=== PATIENT | female | born 1945 | race Caucasian/White ===

== ENCOUNTER 2023-08-18 08:20 | Outpatient (REF) | payer MEDICARE, BC, SELFPAY ==
--- NOTE | ~2023-08-18 | XR_ITS ---
EXAMINATION: XR LUMBOSACRAL SPINE BENDING FILMS ONLY CLINICAL INFORMATION: Pain COMPARISON: None available. TECHNIQUE: Neutral flexion and extension views of the lumbar spine FINDINGS: Grade 1 anterolisthesis of L4 on L5 without subluxation between flexion and extension views. Retrolisthesis of L2 on L3 and L3 on L4 without evidence of subluxation between flexion and extension views. Multilevel degenerative changes with disc space narrowing and osteophytosis. XR/XR lumbar spine bending only IMPRESSION: Grade 1 anterolisthesis of L4 on L5 and retrolisthesis of L2 on L3 and L3 on L4 without subluxation between flexion and extension views.
== END 2023-08-18 08:21 | disposition home or self-care (01) ==
LOC: HO.HOSX 08:20
PROVIDERS: Visit Provider Internal Medicine
DX: Z13.89 Encounter for screening for other disorder (principal)
CPT/HCPCS: 72120

== ENCOUNTER 2023-08-18 10:44 | Outpatient (AMB) | payer MEDICARE, BC, SELFPAY ==
--- NOTE | ~2023-08-18 | XR_ITS ---
EXAMINATION: XR LUMBOSACRAL SPINE CLINICAL INFORMATION: Spinal stenosis. COMPARISON: None available. TECHNIQUE: AP and lateral views of the lumbar spine were obtained. Lateral views were obtained in flexion, extension, and neutral positions. FINDINGS: There is bony demineralization. There is marked degenerative disc disease extending from L1-L2 through L5-S1. At L2-L3, there is a 5 mm anterolisthesis. At L3-L4, there is a 6 mm anterolisthesis. At L4-L5, there is an 8 mm anterolisthesis. No acute fracture or spondylolisthesis is seen. There is no significant instability with flexion or extension. The posterior elements are intact. There is multi-level lumbar facet arthropathy. There are aortoiliac atherosclerotic calcifications. There are pelvic surgical clips. A hip arthroplasty is noted. XR/XR lumbar spine bending only IMPRESSION: There is multi-level marked degenerative disc disease, spondylosis and facet arthropathy, extending from L1-L2 through L5-S1. No acute fracture or spondylolisthesis is seen. There is no instability with flexion or extension.
--- NOTE | 2023-08-18 10:48 | MHC.OFFVIS ---
Intake Vital Signs 08/18/23 10:50 Height 5 ft 5 in Weight 172 lb BMI 28.6 Respiration 12 Intake Visit Reasons: Lumbar DDD Allergies Sulfa (Sulfonamide Antibiotics) Allergy (Severe, Verified 08/18/23 10:51) serum sickness esomeprazole [From Nexium] Adverse Reaction (Severe, Verified 08/18/23 10:51) Hives citalopram Adverse Reaction (Intermediate, Verified 08/18/23 10:51) Rash Medication List - Last Reconciled 08/18/23 by Melony De La Cruz LPN acetaminophen 1,000 mg PO Q6H PRN amlodipine 10 mg PO DAILY aspirin (Adult Aspirin Regimen) 81 mg PO DAILY bimatoprost 0.01% (Lumigan) 1 drp ophthalmic (eye) DAILY chlorpheniramine maleate 4 mg PO Q8H PRN diclofenac sodium 1% 2 grams topical QID famotidine 40 mg PO DAILY fluticasone propionate 50 mcg/actuation 1 spray intranasal DAILY gabapentin 300 mg PO TID hydrochlorothiazide 25 mg PO DAILY ibuprofen 200 mg PO Q6H PRN lorazepam 1 mg PO DAILY losartan 100 mg PO DAILY potassium chloride ER 10 mEq PO DAILY tramadol 50 mg PO Q6H PRN HPI Lumbar DDD HPI Details 77-year-old female who presents today to the office for an evaluation of lumbar DDD. The patient reports low back pain with associated left leg radiculopathy. She reports low back pain, which radiates through the groin and down the anterior aspect of the left thigh. The pain is rated at 7/10 in intensity on average. Her left leg is worse than the right side. She states that her back pain is bothersome. She denies any right-leg radiculopathy. She reports buckling in her left leg. She has some discomfort sleeping on the left side at night. She states that her pain worsens when getting out of bed, recliner, or couch. She is using a walker for ambulation. She is taking gabapentin 300 mg TID and alternates between Tylenol and ibuprofen for pain management. She had a left total hip arthroplasty performed about 15-20 years ago in [place] and a right total knee arthroplasty performed by Dr. Blanco in May 2023. She had a DEXA scan several years ago, was WNL. She usually sleeps only about 3 hours at night and keeps switching from bed to couch to reclining chairs. She is not taking any blood thinners. 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 She states that her work required a lot of lifting and bending. She is physically active and does gardening at home. She lifts 40-pound bags of dirt, shovels, and works in the yard. 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 [facility] Medical History (Updated 08/18/23 @ 11:23 by Aadlid Brooks MD) Low back pain Review of Systems Const All systems reviewed & are unremarkable except as noted in HPI and below Physical Exam Vital Signs: Last Vital Signs Resp 12 08/18/23 10:50 BMI result Body Mass Index 28.6 General: Appears afebrile. Alert and oriented. Mood and affect appropriate. Follows and participates in conversation appropriately. Respiratory effort is unlabored. Able to transition from sit to stand unassisted. Ambulates with bilaterally normal heel strike and toe off. Lumber extension reproduces pain. Straight leg raise reproduces pain in the left leg. Forward flexion does not reproduce pain. She is?able?to?stand?on?her?toes,?but?her left?leg?feels?weaker and reproduces radicular symptoms in the left lower extremity. She is?able?to?stand?on?her?heels. Results Reviewed Results Reviewed: No imaging is available for review. Assessment & Plan Assessment & Plan (1) Spondylolisthesis, lumbar region: Code(s): M43.16 - Spondylolisthesis, lumbar region (2) Lumbar spinal stenosis: Code(s): M48.061 - Spinal stenosis, lumbar region without neurogenic claudication Plan Discussed epidural steroid injections as a possible treatment option before proceeding for surgical option. We will schedule her for a left L4-5 interlaminar parasagittal DEVONTE. Discussed the risks and benefits of the procedure with the patient in detail. All questions were answered. The patient is on board with the plan. Informed the patient that insurance approval is required. We will file a PA for approval and keep her updated. Justification for interventional therapy: Patient with average pain > 6/10 Patient has exhausted conservative therapy Patient unable to tolerate physical therapy due to pain I also ordered an x-ray of the lumbar spine for further evaluation of spondylolisthesis. We will also consider a referral to neurosurgery for discussion of surgical options. Scribed for Dr. Brooks by Matty Galicia, medical staff director, on 08/18/2023. I, Dr. Brooks, have personally reviewed and agree with the information entered by the scribe. Orders: Orders XR lumbar spine bending only 08/18/23 M43.16 - Spondylolisthesis, lumbar region, M48.061 - Spinal stenosis, lumbar region without neurogenic claudication Coding Level of Care Code New Pt Level 4 (33449) Diagnoses Spondylolisthesis, lumbar region M43.16 Lumbar spinal stenosis M48.061
[2023-08-18 10:50] VITALS: RESP 12; BMI 28.6
== END 2023-08-18 11:37 | disposition home or self-care (01) ==
LOC: HO.PMC 10:44
PROVIDERS: PCP Internal Medicine; Referring Provider Physician Assistant Surgical; Visit Provider Internal Medicine
DX: M43.16 Spondylolisthesis, lumbar region (principal); M48.061 Spinal stenosis, lumbar region without neurogenic claudication
CPT/HCPCS: 99204

== ENCOUNTER → 2023-08-18 10:44 | Outpatient (BNVA) | payer MEDICARE, BC, SELFPAY | PROVIDERS: PCP Internal Medicine; Referring Provider Physician Assistant Surgical; Visit Provider Internal Medicine | DX: M43.16 Spondylolisthesis, lumbar region (principal); M48.061 Spinal stenosis, lumbar region without neurogenic claudication | CPT/HCPCS: 72120; 99202 ==

== ENCOUNTER 2023-09-02 06:13 | Outpatient (REF) | payer MEDICARE, BC, SELFPAY ==
--- NOTE | ~2023-09-02 | FL_ITS ---
EXAMINATION: XR FLUOROSCOPY WITH IMAGES CLINICAL INFORMATION: Spinal stenosis lumbar region without neurogenic claudication. COMPARISON: Lumbar spine of 08/18/2023. TECHNIQUE: Fluoroscopy Supervised By: Dr. Brooks. Fluoroscopy Time: 0.6 minutes. Cumulative Dose: 21.6 mGy. DAP: 0.146 Gycm2. Images: 5. FINDINGS: Five intraoperative images are provided. Catheter tip with small amount of dye demonstrated at the level of the lumbar spine. Cannot confirm lumbar vertebral level with images provided. FL/FL guidance in treatment room IMPRESSION: Fluoroscopy provided for intraoperative procedure. Please refer to operative note for more detailed evaluation.
== END 2023-09-02 06:14 | disposition home or self-care (01) ==
LOC: CF 06:13
PROVIDERS: Visit Provider Internal Medicine
DX: M48.061 Spinal stenosis, lumbar region without neurogenic claudication (principal); M54.16 Radiculopathy, lumbar region
CPT/HCPCS: 64483; J1100; J3301; Q9967

== ENCOUNTER 2023-09-02 13:07 | Outpatient (AMB) | payer MEDICARE, BC, SELFPAY ==
[2023-09-02 13:14] VITALS: BP 130/68; PULSE 75; RESP 14; O2SAT 98; BMI 29.1
--- NOTE | 2023-09-02 13:14 | A.OFFVIS_ITS ---
Intake Vital Signs 09/02/23 13:14 09/02/23 14:52 Height 5 ft 5 in 5 ft 5 in Weight 175 lb 175 lb BMI 29.1 29.1 BP 130/68 140/70 H Blood Pressure Location Lt brachial Lt brachial Position Sitting Sitting Respiration 14 14 Pulse 75 79 Pulse Source Pulse Oximeter Pulse Oximeter Pulse Oximetry (%) 98 98 Oxygen Delivery Method Room Air Comment Pre-Op post-op Intake Visit Reasons: Left L4-L5 interlaminar parasagittal DEVONTE Readers' Advisory Service Librarian Required: No Accompanied by: Self / Same As Patient Allergies Sulfa (Sulfonamide Antibiotics) Allergy (Severe, Verified 09/02/23 13:15) serum sickness esomeprazole [From Nexium] Adverse Reaction (Severe, Verified 09/02/23 13:15) Hives citalopram Adverse Reaction (Intermediate, Verified 09/02/23 13:15) Rash HPI Left L4-L5 interlaminar parasagittal DEVONTE HPI Details Patient presents for scheduled procedure. Denies any recent cough, cold, infection, fever or other significant changes in medical history since last office visit. [facility] Medical History (Updated 09/02/23 @ 15:58 by Adalid Brooks MD) Low back pain Physical Exam Vital Signs: Last Vital Signs Pulse 79 09/02/23 14:52 Resp 14 09/02/23 14:52 BP 140/70 H 09/02/23 14:52 Pulse Ox 98 09/02/23 14:52 Oxygen Delivery Method Room Air 09/02/23 14:52 BMI result Body Mass Index 29.1 Office Procedures Details: Transforaminal epidural steroid injection, Left L5 After obtaining written consent, pre-procedure blood pressure and heart rate were stable and recorded in the nursing record. The patient was placed in the prone position on the fluoroscopy table. The lumbosacral area was prepped with chloraprep, allowed to dry and draped in sterile fashion. An interlaminar injection at L4-5 was attempted 1st. Loss of resistance was obtained and confirmed using contrast. However the patient reported severe pain on injection so the needle was removed. It was then replaced at the L3-4 level but an osteophyte was encountered while attempting to advance the needle in the L3-4 interlaminar space, so this level was aborted and the needle was withdrawn again. The L5-S1 level was then attempted and the needle was advanced into the interlaminar space under AP and contralateral oblique view. Loss of resistance was obtained to saline. However contrast injection showed intrathecal spread despite no other evidence of dural puncture. At this point the inability to obtain reliable interlaminar access was discussed with the patient and the decision was made to attempt a transforaminal access instead. The left L5 foramen was selected as a target. Using fluoroscopy, the skin overlying our target was anesthetized with 0.5% lidocaine. A 22 gauge 3.5 inch spinal needle was advanced to the safe triangle in the upper pole of the left L5 foramen. No paresthesias were elicited with needle placement and aspiration was negative for blood and CSF. Correct needle position was confirmed with approximately 1 ml contrast dye (Omnipaque 180 mg/ml) injected under real- time fluoroscopy. No evidence of vascular or intrathecal uptake was seen and there was both epidural and peripheral spread of the contrast agent. 10 mg dexamethasone plus 1 ml containing 0.5% lidocaine was slowly injected. The needle was flushed and removed. the same procedure was repeated for the remaining levels. The skin was cleansed and a sterile bandages were applied. The patient tolerated the procedure well and no complications were encountered. Following the procedure the patient's vital signs were stable. The patient was discharged home in good condition with post-procedural instructions. Time Out: Immediately prior to the procedure, the following was verbally confirmed that there is a signed consent form and that the correct patient, planned procedure, site and side are consistent with documentation and that necessary equipment and/or blood products are available prior to the start of the case. Complications: none EBL: <5 cc 63757 - Lumbar/Sacral Procedure code (CPT) selection complete Assessment & Plan Assessment & Plan (1) Lumbar radiculopathy: Code(s): M54.16 - Radiculopathy, lumbar region Plan Patient is status post left L5 TFESI. We were unable to obtain reliable interlaminar epidural access at L3-4, L4-5 and L5-S1. In the future we will plan for TFESI injections only if she finds this helpful. Patient tolerated procedure well and was discharged home in stable condition with discharge instructions. All questions were answered. We will follow-up via telephone or in clinic to assess response to therapy. A follow-up appointment was made during today's visit. Orders: Orders FL guidance in treatment room Today M48.061 - Spinal stenosis, lumbar region without neurogenic claudication Coding Level of Care Code Procedure Only Diagnoses Lumbar radiculopathy M54.16 CPT Codes Transforaminal Epidural Steroid Inj - TESI 3: 37697 - Lumbar/Sacral ([id number])
[2023-09-02 14:52] VITALS: BP 140/70; PULSE 79; RESP 14; O2SAT 98; BMI 29.1
== END 2023-09-02 14:51 | disposition home or self-care (01) ==
LOC: HO.PMCPRC 13:07
PROVIDERS: PCP Internal Medicine; Visit Provider Internal Medicine
DX: M54.16 Radiculopathy, lumbar region (principal)
CPT/HCPCS: 64483

== ENCOUNTER 2023-09-29 08:45 | Outpatient (AMB) | payer MEDICARE, BC, SELFPAY ==
--- NOTE | 2023-09-29 08:48 | A.OFFVIS_ITS ---
Intake Vital Signs 09/29/23 08:49 Height 5 ft 5 in Weight 175 lb BMI 29.1 BP 142/78 H Blood Pressure Location Lt brachial Position Sitting Respiration 12 Pulse 85 Pulse Source Pulse Oximeter Pulse Oximetry (%) 99 Oxygen Delivery Method Room Air Intake Visit Reasons: s/p L L4-L5 interlaminar parasagittal DEVONTE/CONFIRM Allergies Sulfa (Sulfonamide Antibiotics) Allergy (Severe, Verified 09/29/23 08:52) serum sickness esomeprazole [From Nexium] Adverse Reaction (Severe, Verified 09/29/23 08:52) Hives citalopram Adverse Reaction (Intermediate, Verified 09/29/23 08:52) Rash Medication List - Last Reconciled 09/29/23 by Melony De La Cruz LPN acetaminophen 1,000 mg PO Q6H PRN amlodipine 10 mg PO DAILY bimatoprost 0.01% (Lumigan) 1 drp ophthalmic (eye) DAILY chlorpheniramine maleate 4 mg PO Q8H PRN diclofenac sodium 1% 2 grams topical QID gabapentin 300 mg PO TID hydrochlorothiazide 25 mg PO DAILY ibuprofen 200 mg PO Q6H PRN lorazepam 1 mg PO DAILY losartan 100 mg PO DAILY potassium chloride ER 10 mEq PO DAILY HPI s/p L L4-L5 interlaminar parasagittal DEVONTE/CONFIRM HPI Details 78- year-old female who presents today t o the office for status post left L5 transforaminal DEVONTE. The patient reports 60-70% relief following the procedure for two and a half weeks. She continues to have no pain in her leg which has resolved since the injection. She reports severe, sharp pain after waking up in the morning which is localized to her left lower back. She has been using a walker to come out of bed and walk. She states that her recent pain is the same as the SIJ pain she experienced several years ago. She has had SIJ injections in the past, which provided good relief. She states that her radiating pain has improved; however, she still has mild pain. Her back pain has also improved. She is amenable to proceed with injections. She had stress?fractures?in?her cuboid?bone and has some foot pain. She is unable to wear the boot as it worsens her pain. She has not tried acupuncture in the past. Past procedure: 09/02/23: Transforaminal epidural steroid injection, Left L5: 60-70% relief for two and a half weeks with significant improvement in leg symptoms. [facility] Medical History (Updated 10/04/23 @ 15:15 by JOSE Ramirez) Low back pain Review of Systems Const All systems reviewed & are unremarkable except as noted in HPI and below Physical Exam Vital Signs: Last Vital Signs Pulse 85 09/29/23 08:49 Resp 12 09/29/23 08:49 BP 142/78 H 09/29/23 08:49 Pulse Ox 99 09/29/23 08:49 Oxygen Delivery Method Room Air 09/29/23 08:49 BMI result Body Mass Index 29.1 General: Appears afebrile. Alert and oriented. Mood and affect appropriate. Follows and participates in conversation appropriately. Respiratory effort is unlabored. Able to transition from sit to stand unassisted. Ambulates with bilaterally normal heel strike and toe off. SIJ compression, thrust, and Susanne were positive. Results Reviewed Results Reviewed: No imaging is available for review. Assessment & Plan Assessment & Plan (1) Sacroiliac joint pain: Code(s): M53.3 - Sacrococcygeal disorders, not elsewhere classified (2) Lumbar radiculopathy: Code(s): M54.16 - Radiculopathy, lumbar region Plan Lumbar radicular symptoms have improved significantly with residuals axial low back pain that is sharp and stabbing in nature likely secondary to SI joint dysfunction. We will schedule her for left intraarticular diagnostic sacroiliac joint injection followed by a therapeutic injection one week later. Discussed the risks and benefits of the procedure with the patient in detail. All questions were answered. The patient is on board with the plan. Informed the patient that insurance approval is required. We will file a PA for approval and keep her updated. Justification for interventional therapy: ? Patient with average pain > 6/10 ? Patient has exhausted conservative therapy ? Patient unable to tolerate physical therapy due to pain Scribed for Dr. Brooks by Matty Galicia, chief medical physicist, on 09/29/2023. I, Dr. Priyanka ragland, have personally reviewed and agree with the information entered by the scribe. Coding Level of Care Code Est Pt Level 4 (89546) Diagnoses Sacroiliac joint pain M53.3 Lumbar radiculopathy M54.16
[2023-09-29 08:49] VITALS: BP 142/78; PULSE 85; RESP 12; O2SAT 99; BMI 29.1
== END 2023-09-29 09:36 | disposition home or self-care (01) ==
LOC: HO.PMC 08:46
PROVIDERS: PCP Internal Medicine; Visit Provider Internal Medicine
DX: M53.3 Sacrococcygeal disorders, not elsewhere classified (principal); M54.16 Radiculopathy, lumbar region
CPT/HCPCS: 99214

== ENCOUNTER → 2023-09-29 08:45 | Outpatient (BNVA) | payer MEDICARE, BC, SELFPAY | PROVIDERS: PCP Internal Medicine; Visit Provider Internal Medicine | DX: M53.3 Sacrococcygeal disorders, not elsewhere classified (principal); M54.16 Radiculopathy, lumbar region | CPT/HCPCS: 99212 ==

== ENCOUNTER 2023-10-07 06:13 | Outpatient (REF) | payer MEDICARE, BC, SELFPAY ==
--- NOTE | ~2023-10-07 | FL_ITS ---
EXAMINATION: XR FLUOROSCOPY WITH IMAGES CLINICAL INFORMATION: Sacrococcygeal disorders, not elsewhere classified. COMPARISON: Radiographs dated 08/18/2023. TECHNIQUE: Fluoroscopy Supervised By: Dr. Adalid Brooks. Fluoroscopy Time: 0.1 minutes. Cumulative Dose: 1.94 mGy. DAP: 0.0176 mGym2. Images: 1. FINDINGS: The single lateral view shows an injection needle with tip overlapping the mid sacrum. FL/FL guidance in treatment room IMPRESSION: Intraoperative fluoroscopic guidance is provided during sacrococcygeal pain management procedure. Please see the patient's Operative Report for full procedural details.
== END 2023-10-07 06:14 | disposition home or self-care (01) ==
LOC: CF 06:13
PROVIDERS: Visit Provider Internal Medicine
DX: M53.3 Sacrococcygeal disorders, not elsewhere classified (principal)
CPT/HCPCS: 27096; J2795

== ENCOUNTER 2023-10-07 13:26 | Outpatient (AMB) | payer MEDICARE, BC, SELFPAY ==
[2023-10-07 13:37] VITALS: BP 118/78; PULSE 72; RESP 18; O2SAT 95; BMI 29.1
--- NOTE | 2023-10-07 13:37 | MHC.OFFVIS ---
Intake Vital Signs 10/07/23 13:37 Height 5 ft 5 in Weight 175 lb BMI 29.1 BP 118/78 Blood Pressure Location Lt brachial Position Sitting Respiration 18 Pulse 72 Pulse Source Pulse Oximeter Pulse Oximetry (%) 95 Oxygen Delivery Method Room Air Comment Pre-Op Intake Visit Reasons: Left Dx intraarticular SIJ inj Allergies Sulfa (Sulfonamide Antibiotics) Allergy (Severe, Verified 09/29/23 08:52) serum sickness esomeprazole [From Nexium] Adverse Reaction (Severe, Verified 09/29/23 08:52) Hives citalopram Adverse Reaction (Intermediate, Verified 09/29/23 08:52) Rash HPI Left Dx intraarticular SIJ inj HPI Details Patient presents for scheduled procedure. Denies any recent cough, cold, infection, fever or other significant changes in medical history since last office visit. [facility] Medical History (Updated 10/04/23 @ 15:15 by JOSE Ramirez) Low back pain Physical Exam Vital Signs: Last Vital Signs Pulse 72 10/07/23 13:37 Resp 18 10/07/23 13:37 BP 118/78 10/07/23 13:37 Pulse Ox 95 10/07/23 13:37 Oxygen Delivery Method Room Air 10/07/23 13:37 BMI result Body Mass Index 29.1 Office Procedures Joint Injection/Drain Joint Injection/Drain Details: Diagnostic Sacroiliac Joint Injection, Left The procedure, its benefits, and its risks were explained and written informed consent was obtained from the patient. Immediately prior to starting the procedure, a time-out safety check was conducted. The patient's identification, procedure name, procedure site, and procedure laterality were confirmed with the patient. ? Patient was placed prone on the fluoroscopy table and the lumbosacral area was prepped using ChloraPrep and draped with sterile drapein standard fashion. The C-arm was rotated in a contralateral oblique fashion until the medial border of the iliac crest no longer foreshadowed the posterior sacroiliac joint line. The skin and subcutaneous tissue was anesthetized using 1 mL of 0.75% plain lidocaine with 1.5-inch 25-gauge needle in the middle region of the joint line.? A 3.5-inch 22-gauge spinal needle with small bend on the tip was slowly advanced towards the joint line, coaxial to the x-ray beam. Once bony content was obtained, the needle was easily slid into the intra-articular space.?Intra-articular needle position was confirmed using lateral fluoroscopy.?A total volume of 2.5 mL of solution containing 0.5% ropivacaine was injected intra-articularly. The stylet was reinserted and needle was removed. The patient tolerated the procedure well. Patient denied any lower extremity weakness or numbness. Patient was observed for 30 min and was discharged after fulfilling the standard discharge criteria. Coding 24772 - Sacroiliac Procedure code (CPT) selection complete Assessment & Plan Assessment & Plan (1) Sacroiliac joint pain: Code(s): M53.3 - Sacrococcygeal disorders, not elsewhere classified Plan Patient is status post left diagnostic sacroiliac joint injection. Patient tolerated procedure well and was discharged home in stable condition with discharge instructions. All questions were answered. We will follow-up via telephone or in clinic to assess response to therapy. A follow-up appointment was made during today's visit. Orders: Orders FL guidance in treatment room Today M53.3 - Sacrococcygeal disorders, not elsewhere classified Coding Level of Care Code Procedure Only Diagnoses Sacroiliac joint pain M53.3 CPT Codes Coding - Joint 9: 03229 - Sacroiliac ([id number])
== END 2023-10-07 14:42 | disposition home or self-care (01) ==
LOC: HO.PMCPRC 13:26
PROVIDERS: PCP Internal Medicine; Visit Provider Internal Medicine
DX: M53.3 Sacrococcygeal disorders, not elsewhere classified (principal)
CPT/HCPCS: 27096

== ENCOUNTER 2023-10-14 06:08 | Outpatient (REF) | payer MEDICARE, BC, SELFPAY ==
--- NOTE | ~2023-10-14 | FL_ITS ---
EXAMINATION: XR FLUOROSCOPY WITH IMAGES CLINICAL INFORMATION: Sacrococcygeal disorders, not elsewhere classified. COMPARISON: Intraoperative fluoroscopy dated 10/07/2023. TECHNIQUE: Fluoroscopy Supervised By: Dr. Fifi Rehman. Fluoroscopy Time: 0.1 minutes. Cumulative Dose: 3.10 mGy. DAP: 0.0361 mGym2. Images: 2. FINDINGS: The submitted images show an injection needle with tip positioned in the vicinity of the lower left sacroiliac joint. FL/FL guidance in treatment room IMPRESSION: Intraoperative fluoroscopic guidance is provided during sacrococcygeal pain management procedure. Please see the patient's Operative Report for full procedural details.
== END 2023-10-14 06:09 | disposition home or self-care (01) ==
LOC: CF 06:08
PROVIDERS: Visit Provider Internal Medicine
DX: M53.3 Sacrococcygeal disorders, not elsewhere classified (principal)
CPT/HCPCS: 27096; J2795; J3301

== ENCOUNTER 2023-10-14 09:26 | Outpatient (AMB) | payer MEDICARE, BC, SELFPAY ==
[2023-10-14 09:46] VITALS: BP 122/82; PULSE 72; RESP 18; O2SAT 97; BMI 29.1
--- NOTE | 2023-10-14 09:46 | MHC.OFFVIS ---
Intake Vital Signs 10/14/23 09:46 10/14/23 10:34 Height 5 ft 5 in Weight 175 lb BMI 29.1 BP 122/82 118/80 Blood Pressure Location Lt brachial Lt brachial Position Sitting Sitting Respiration 18 18 Pulse 72 82 Pulse Source Pulse Oximeter Pulse Oximeter Pulse Oximetry (%) 97 98 Oxygen Delivery Method Room Air Room Air Comment Pre-Op Post-Op Intake Visit Reasons: Left theraputic SIJ inj Allergies Sulfa (Sulfonamide Antibiotics) Allergy (Severe, Verified 09/29/23 08:52) serum sickness esomeprazole [From Nexium] Adverse Reaction (Severe, Verified 09/29/23 08:52) Hives citalopram Adverse Reaction (Intermediate, Verified 09/29/23 08:52) Rash HPI Left theraputic SIJ inj HPI Details Patient presents for scheduled procedure. Denies any recent cough, cold, infection, fever or other significant changes in medical history since last office visit. [facility] Medical History (Updated 10/04/23 @ 15:15 by JOSE Ramirez) Low back pain Physical Exam Vital Signs: Last Vital Signs Pulse 72 10/14/23 09:46 Resp 18 10/14/23 09:46 BP 122/82 10/14/23 09:46 Pulse Ox 97 10/14/23 09:46 Oxygen Delivery Method Room Air 10/14/23 09:46 BMI result Body Mass Index 29.1 Office Procedures Joint Injection/Drain Joint Injection/Drain Details: Sacroiliac Joint Injection, Left The procedure, its benefits, and its risks were explained and written informed consent was obtained from the patient. Immediately prior to starting the procedure, a time-out safety check was conducted. The patient's identification, procedure name, procedure site, and procedure laterality were confirmed with the patient. ? Patient was placed prone on the fluoroscopy table and the lumbosacral area was prepped using ChloraPrep and draped with sterile drape in standard fashion. The C-arm was rotated in a contralateral oblique fashion until the medial border of the iliac crest no longer foreshadowed the posterior sacroiliac joint line. The skin and subcutaneous tissue was anesthetized using 1 mL of 0.75% plain lidocaine with 1.5-inch 25-gauge needle in the middle region of the joint line.? A 3.5-inch 22-gauge spinal needle with small bend on the tip was slowly advanced towards the joint line, coaxial to the x-ray beam. Once bony content was obtained, the needle was easily slid into the intra-articular space.? Intra-articular needle position was confirmed using lateral fluoroscopy.? A total volume of 2.5mL of solution containing 40 mg triamcinilone and rest 0.5% of ropivacaine was injected intra-articularly. The stylet was reinserted and needle was removed. The patient tolerated the procedure well. Patient denied any lower extremity weakness or numbness. Patient was observed for 30 min and was discharged after fulfilling the standard discharge criteria. Coding 64751 - Sacroiliac Procedure code (CPT) selection complete Assessment & Plan Assessment & Plan (1) Sacroiliac joint pain: Code(s): M53.3 - Sacrococcygeal disorders, not elsewhere classified Plan Patient is status post left therapeutic SIJ injection. Patient tolerated procedure well and was discharged home in stable condition with discharge instructions. All questions were answered. We will follow-up via telephone or in clinic to assess response to therapy. A follow-up appointment was made during today's visit. Orders: Orders FL guidance in treatment room Today M53.3 - Sacrococcygeal disorders, not elsewhere classified Coding Level of Care Code Procedure Only Diagnoses Sacroiliac joint pain M53.3 CPT Codes Coding - Joint 9: 45513 - Sacroiliac ([id number])
[2023-10-14 10:34] VITALS: BP 118/80; PULSE 82; RESP 18; O2SAT 98
== END 2023-10-14 10:31 | disposition home or self-care (01) ==
LOC: HO.PMCPRC 09:26
PROVIDERS: PCP Internal Medicine; Visit Provider Internal Medicine
DX: M53.3 Sacrococcygeal disorders, not elsewhere classified (principal)
CPT/HCPCS: 27096

== ENCOUNTER 2023-11-01 08:59 | Outpatient (AMB) | payer MEDICARE, BC, SELFPAY ==
--- NOTE | 2023-11-01 09:01 | MHC.OFFVIS ---
Intake Vital Signs 11/01/23 09:03 Height 5 ft 5 in Weight 170 lb BMI 28.3 BP 139/71 Blood Pressure Location Lt brachial Position Sitting Respiration 12 Pulse 77 Pulse Source Pulse Oximeter Pulse Oximetry (%) 96 Oxygen Delivery Method Room Air Intake Visit Reasons: s/p Left theraputic SIJ inj Allergies Sulfa (Sulfonamide Antibiotics) Allergy (Severe, Verified 11/01/23 09:04) serum sickness esomeprazole [From Nexium] Adverse Reaction (Severe, Verified 11/01/23 09:04) Hives citalopram Adverse Reaction (Intermediate, Verified 11/01/23 09:04) Rash Medication List - Last Reconciled 11/01/23 by Melony De La Cruz LPN acetaminophen 1,000 mg PO Q6H PRN amlodipine 10 mg PO DAILY bimatoprost 0.01% (Lumigan) 1 drp ophthalmic (eye) DAILY chlorpheniramine maleate 4 mg PO Q8H PRN diclofenac sodium 1% 2 grams topical QID gabapentin 300 mg PO TID hydrochlorothiazide 25 mg PO DAILY ibuprofen 200 mg PO Q6H PRN lorazepam 1 mg PO DAILY losartan 100 mg PO DAILY potassium chloride ER 10 mEq PO DAILY HPI s/p Left theraputic SIJ inj HPI Details 78-year-old female who presents today to the office for a status post left therapeutic SIJ injection. The patient reports 20-30% relief following the procedure. She still reports stabbing pain and tenderness on the left side, which is worse in the morning. She rates her pain at 9/10 when trying to get out of bed in the morning. Her pain score was down to 4/10 in intensity during the first two days after the procedure. The pain aggravates when standing from the sitting position and sitting from the lying down position. She denies any weakness in her leg. She has difficulty standing or sitting for prolonged periods of time. She has good relief from the gabapentin. She uses ice compression for some relief. Oswestry disability index is 46%. Past procedures 10/14/23: Sacroiliac Joint Injection, Left: 20-30% relief. 10/07/23: Diagnostic Sacroiliac Joint Injection, Left: Positive diagnostic relief. 09/02/23: Transforaminal epidural steroid injection, Left L5: 60-70% relief for two and a half weeks with significant improvement in leg symptoms. [facility] Medical History (Updated 11/01/23 @ 09:59 by Adalid Brooks MD) Low back pain Review of Systems Const All systems reviewed & are unremarkable except as noted in HPI and below Physical Exam Vital Signs: Last Vital Signs Pulse 77 11/01/23 09:03 Resp 12 11/01/23 09:03 BP 139/71 11/01/23 09:03 Pulse Ox 96 11/01/23 09:03 Oxygen Delivery Method Room Air 11/01/23 09:03 BMI result Body Mass Index 28.3 General: Appears afebrile. Alert and oriented. Mood and affect appropriate. Follows and participates in conversation appropriately. Respiratory effort is unlabored. Able to transition from sit to stand unassisted. Ambulates with bilaterally normal heel strike and toe off. Flexion does not reproduce pain. Rising from a flexed forward position reproduces discomfort. Lumbar extension and facet loading is painful. Results Reviewed Results Reviewed: MRI reviewed once again. Significant facet arthropathy, central and foraminal spinal stenosis and severe endplate degeneration and disc degeneration noted. Assessment & Plan Assessment & Plan (1) Lumbar spondylosis: Code(s): M47.816 - Spondylosis without myelopathy or radiculopathy, lumbar region (2) Vertebrogenic low back pain: Code(s): M54.51 - Vertebrogenic low back pain (3) Lumbar spinal stenosis: Code(s): M48.061 - Spinal stenosis, lumbar region without neurogenic claudication Plan Discussed facet interventions and basivertebral nerve ablation as possible treatment options. She is not an optimal candidate for surgery at this time given the lack any neurologic deficits or significant radiating pain. Will schedule her for a bilateral diagnostic L3-L4-L5 medial branch block to assess the candidacy for lumbar medial branch nerve stimulation/ablation. Discussed the risks and benefits of the procedure with the patient in detail. All questions were answered. The patient is on board with the plan. If facet interventions are not helpful, we can consider basivertebral nerve ablation for vertebrogenic back pain. Justification for interventional therapy: ? Patient with average pain > 6/10 ? Patient has exhausted conservative therapy ? Patient unable to tolerate physical therapy due to pain. . Patient has a good understanding of their pain condition and has appropriate mental and social support Scribed for Dr. Brooks by Matty Galicia, medical lab director, on 11/01/2023. I, Dr. Brooks, have personally reviewed and agree with the information entered by the scribe. Coding Level of Care Code Est Pt Level 4 (06967) Diagnoses Lumbar spondylosis M47.816 Vertebrogenic low back pain M54.51 Lumbar spinal stenosis M48.061
[2023-11-01 09:03] VITALS: BP 139/71; PULSE 77; RESP 12; O2SAT 96; BMI 28.3
== END 2023-11-01 09:48 | disposition home or self-care (01) ==
PROVIDERS: PCP Internal Medicine; Visit Provider Internal Medicine
DX: M47.816 Spondylosis without myelopathy or radiculopathy, lumbar region (principal); M54.51 Vertebrogenic low back pain; M48.061 Spinal stenosis, lumbar region without neurogenic claudication
CPT/HCPCS: 99214

== ENCOUNTER → 2023-11-01 08:59 | Outpatient (BNVA) | payer MEDICARE, BC, SELFPAY | PROVIDERS: PCP Internal Medicine; Visit Provider Internal Medicine | DX: M47.816 Spondylosis without myelopathy or radiculopathy, lumbar region (principal); M54.51 Vertebrogenic low back pain; M48.061 Spinal stenosis, lumbar region without neurogenic claudication | CPT/HCPCS: 99212 ==

== ENCOUNTER 2023-12-02 06:18 | Outpatient (REF) | payer MEDICARE, BC, SELFPAY ==
--- NOTE | ~2023-12-02 | FL_ITS ---
EXAMINATION: XR FLUOROSCOPY WITH IMAGES CLINICAL INFORMATION: Spondylosis. COMPARISON: None available. TECHNIQUE: Fluoroscopy Supervised By: Dr. Brooks. Fluoroscopy Time: 0.1 min. Cumulative Dose: 1.39 mGy. DAP: 0.0187 Gycm2. Images: 2. FINDINGS: Intraoperative fluoroscopy and spot films were performed during a procedure in the OR. Needle tips are seen at 3 levels on each side overlying the lumbosacral spine with contrast around their tips. Please see Dr. Brooks' report for complete details. FL/FL guidance in treatment room IMPRESSION: Intraoperative fluoroscopy and spot films were obtained. Please see Dr. Brooks' report for complete details.
== END 2023-12-02 06:19 | disposition home or self-care (01) ==
LOC: CF 06:18
PROVIDERS: Visit Provider Internal Medicine
DX: M47.816 Spondylosis without myelopathy or radiculopathy, lumbar region (principal)
CPT/HCPCS: 64493; 64494; J2795; Q9967

== ENCOUNTER 2023-12-02 10:32 | Outpatient (AMB) | payer MEDICARE, BC, SELFPAY ==
[2023-12-02 10:38] VITALS: BP 126/72; PULSE 77; RESP 16; O2SAT 97; BMI 28.3
--- NOTE | 2023-12-02 10:38 | A.OFFVIS_ITS ---
Vital Signs 12/02/23 10:38 12/02/23 11:22 Height 5 ft 5 in Weight 170 lb BMI 28.3 BP 126/72 138/84 Blood Pressure Location Lt brachial Lt brachial Position Sitting Sitting Respiration 16 18 Pulse 77 72 Pulse Source Pulse Oximeter Pulse Oximeter Pulse Oximetry (%) 97 100 Oxygen Delivery Method Room Air Room Air Comment Pre-Op Post-Op Intake Visit Reasons: Jose Ramon Dx L3-L4-L5 MBB Allergies Sulfa (Sulfonamide Antibiotics) Allergy (Severe, Verified 11/01/23 09:04) serum sickness esomeprazole [From Nexium] Adverse Reaction (Severe, Verified 11/01/23 09:04) Hives citalopram Adverse Reaction (Intermediate, Verified 11/01/23 09:04) Rash HPI HPI Jose Ramon Dx L3-L4-L5 MBB: Details: Patient presents for scheduled procedure. Denies any recent cough, cold, infection, fever or other significant changes in medical history since last office visit. [facility] Medical History (Updated 11/01/23 @ 09:59 by Adalid Brooks MD) Low back pain Physical Exam Vital Signs: Last Vital Signs Pulse 77 12/02/23 10:38 Resp 16 12/02/23 10:38 BP 126/72 12/02/23 10:38 Pulse Ox 97 12/02/23 10:38 Oxygen Delivery Method Room Air 12/02/23 10:38 BMI result Body Mass Index 28.3 Office Procedures Lumbar/Sacral Facet Inj Details: Lumbar Medial Branch Block, Bilateral L3, L4 medial branches and L5 Dorsal Ramus (2 levels, 3 nerves) After obtaining written consent, pre-procedure blood pressure and pulse were recorded and are in the nursing record for review. The patient was placed in a prone position. The respective lumbosacral area was prepped with chloraprep and draped in sterile fashion. The skin over the target medial branch nerves was anesthetized with 0.5% lidocaine. A 22 gauge 3.5 inch needle was inserted into the target medial branch nerve under fluoroscopic guidance. No paresthesias were elicited with needle placement and aspiration was negative for blood and CSF. Next, 0.2cc of omnipaque 180 was injected to verify positioning. Next 0.5 ml 0.5% ropivicaine was injected (0.5cc total per level). The identical procedure was performed at the remaining levels. The skin was cleansed and a sterile bandage was applied. Following the procedure the patient's vital signs were stable. The patient tolerated the procedure well and no complications were encountered. Following the procedure the patient's vital signs were stable. The patient was discharged home in good condition with post-procedural instructions. Time Out: Immediately prior to the procedure, the following was verbally confirmed that there is a signed consent form and that the correct patient, planned procedure, site and side are consistent with documentation and that necessary equipment and/or blood products are available prior to the start of the case. Complications: none EBL: <5 cc 24844 - second level, with Fluoroscopy Procedure code (CPT) selection complete Assessment & Plan Assessment & Plan (1) Lumbar spondylosis: Code(s): M47.816 - Spondylosis without myelopathy or radiculopathy, lumbar region Category: Medical Plan Patient is status post bilateral diagnostic L3, L4 medial branches and L5 dorsal ramus blocks. Patient tolerated procedure well and was discharged home in stable condition with discharge instructions. All questions were answered. We will follow-up via telephone or in clinic to assess response to therapy. A follow-up appointment was made during today's visit. Coding Level of Care Code Procedure Only Diagnoses Lumbar spondylosis M47.816 CPT Codes Facet Injection-Lumbar/Sacral - CPT: 06299 - second level, with Fluoroscopy ([id number])
[2023-12-02 11:22] VITALS: BP 138/84; PULSE 72; RESP 18; O2SAT 100
== END 2023-12-02 11:11 | disposition home or self-care (01) ==
LOC: HO.PMCPRC 10:32
PROVIDERS: PCP Internal Medicine; Visit Provider Internal Medicine
DX: M47.816 Spondylosis without myelopathy or radiculopathy, lumbar region (principal)
CPT/HCPCS: 64493; 64494

== ENCOUNTER 2023-12-06 09:03 | Outpatient (AMB) | payer MEDICARE, BC, SELFPAY ==
[2023-12-06 09:12] VITALS: BP 138/81; PULSE 75; RESP 14; O2SAT 96; BMI 28.3
--- NOTE | 2023-12-06 09:12 | MHC.OFFVIS ---
Vital Signs 12/06/23 09:12 Height 5 ft 5 in Weight 170 lb BMI 28.3 BP 138/81 Blood Pressure Location Rt brachial Position Sitting Respiration 14 Pulse 75 Pulse Source Pulse Oximeter Pulse Oximetry (%) 96 Oxygen Delivery Method Room Air Intake Visit Reasons: s/p mirian Dx L3-L4-L5 MBB Allergies Sulfa (Sulfonamide Antibiotics) Allergy (Severe, Verified 12/06/23 09:13) serum sickness esomeprazole [From Nexium] Adverse Reaction (Severe, Verified 12/06/23 09:13) Hives citalopram Adverse Reaction (Intermediate, Verified 12/06/23 09:13) Rash HPI HPI s/p mirian Dx L3-L4-L5 MBB: Details: 78-year-old female who presents today to the office for a status post bilateral diagnostic L3-L4-L5 MBB. The patient reports 70% relief following the procedure. She has noticed significant improvement. She states that initially she had no improvement, but the pain improved as the day progressed. She is avoiding overdosing on Tylenol and Motrin. She took gabapentin and tramadol on and Wednesday. She is not working. She is able to sleep at night and wake up in the morning without any pain. She is able to walk without any pain. Past procedures 12/02/23: Lumbar Medial Branch Block, Bilateral L3, L4 medial branches and L5 Dorsal Ramus (2 levels, 3 nerves): 70% relief. 10/14/23: Sacroiliac Joint Injection, Left: 20-30% relief. 10/07/23: Diagnostic Sacroiliac Joint Injection, Left: Positive diagnostic relief. 09/02/23: Transforaminal epidural steroid injection, Left L5: 60-70% relief for two and a half weeks with significant improvement in leg symptoms. [facility] Medical History (Updated 12/09/23 @ 15:58 by Adalid Brooks MD) Low back pain Review of Systems Const All systems reviewed & are unremarkable except as noted in HPI and below Physical Exam Vital Signs: Last Vital Signs Pulse 75 12/06/23 09:12 Resp 14 12/06/23 09:12 BP 138/81 12/06/23 09:12 Pulse Ox 96 12/06/23 09:12 Oxygen Delivery Method Room Air 12/06/23 09:12 BMI result Body Mass Index 28.3 General: Appears afebrile. Alert and oriented. Mood and affect appropriate. Follows and participates in conversation appropriately. Respiratory effort is unlabored. Able to transition from sit to stand unassisted. Ambulates with bilaterally normal heel strike and toe off. Results Reviewed Results Reviewed: No imaging is available for review. Assessment & Plan Assessment & Plan (1) Intractable back pain: Code(s): M54.9 - Dorsalgia, unspecified Category: Medical (2) Lumbar spondylosis: Code(s): M47.816 - Spondylosis without myelopathy or radiculopathy, lumbar region Category: Medical Plan Discussed radiofrequency ablation vs. temporary nerve stimulator as a possible treatment option. We will schedule her for a left L3 medial branch nerve stimulator placement. Discussed the risks and benefits of the procedure with the patient in detail. All questions were answered. The patient is on board with the plan. Justification for interventional therapy: ? Patient with average pain > 6/10 ? Patient has exhausted conservative therapy ? Patient continuing home exercise program ? Diagnostic injection provided more than 70% relief . Patient has a good understanding of their pain condition and has appropriate mental and social support Scribed for Dr. Brooks by Matty Galicia, clinical medical transcriptionist, on 12/06/2023. I, Dr. Brooks, have personally reviewed and agree with the information entered by the scribe. Coding Level of Care Code Est Pt Level 3 (49693) Diagnoses Intractable back pain M54.9 Lumbar spondylosis M47.816
== END 2023-12-06 09:38 | disposition home or self-care (01) ==
PROVIDERS: PCP Internal Medicine; Visit Provider Internal Medicine
DX: M54.9 Dorsalgia, unspecified (principal); M47.816 Spondylosis without myelopathy or radiculopathy, lumbar region
CPT/HCPCS: 99213

== ENCOUNTER → 2023-12-06 09:03 | Outpatient (BNVA) | payer MEDICARE, BC, SELFPAY | PROVIDERS: PCP Internal Medicine; Visit Provider Internal Medicine | DX: M54.50 Low back pain, unspecified (principal); M47.816 Spondylosis without myelopathy or radiculopathy, lumbar region | CPT/HCPCS: 99212 ==

== ENCOUNTER 2023-12-09 07:12 | Outpatient (REF) | payer MEDICARE, BC, SELFPAY ==
--- NOTE | ~2023-12-09 | FL_ITS ---
EXAMINATION: XR FLUOROSCOPY WITH IMAGES CLINICAL INFORMATION: Spondylosis without myelopathy. COMPARISON: None available. TECHNIQUE: Fluoroscopy Supervised By: Dr. Adalid Brooks. Fluoroscopy Time: 0.1 minutes. Cumulative Dose: 2.36 mGy. DAP: 0.0172 Gy-cm2. Images: 3. FINDINGS: Intraoperative fluoroscopy and spot films were performed during a procedure in the OR. Needle seen overlying the posterior lumbar spine level cannot be ascertained secondary to coning of images. Please see Dr. Adalid Brooks' report for complete details. FL/FL guidance in treatment room IMPRESSION: Intraoperative fluoroscopy and spot films were obtained. Please see Dr. Adalid Brooks' report for complete details.
== END 2023-12-09 07:13 | disposition home or self-care (01) ==
LOC: CF 07:12
PROVIDERS: PCP Internal Medicine; Visit Provider Internal Medicine
DX: M47.816 Spondylosis without myelopathy or radiculopathy, lumbar region (principal)
CPT/HCPCS: 64555; C1778

== ENCOUNTER 2023-12-09 12:59 | Outpatient (AMB) | payer MEDICARE, BC, SELFPAY ==
--- NOTE | 2023-12-09 13:09 | A.OFFVIS_ITS ---
Vital Signs 12/09/23 14:08 12/09/23 14:09 Height 5 ft 5 in Weight 170 lb BMI 28.3 BP 124/70 132/76 Blood Pressure Location Lt brachial Lt brachial Position Sitting Sitting Respiration 16 Pulse 68 Pulse Source Pulse Oximeter Pulse Oximetry (%) 97 Oxygen Delivery Method Room Air Comment Pre-Op Intake Visit Reasons: Left L3 Sprint Allergies Sulfa (Sulfonamide Antibiotics) Allergy (Severe, Verified 12/06/23 09:13) serum sickness esomeprazole [From Nexium] Adverse Reaction (Severe, Verified 12/06/23 09:13) Hives citalopram Adverse Reaction (Intermediate, Verified 12/06/23 09:13) Rash HPI HPI Left L3 Sprint: Details: Patient presents for scheduled procedure. Denies any recent cough, cold, infection, fever or other significant changes in medical history since last office visit. [facility] Medical History (Updated 12/09/23 @ 15:58 by Adalid Brooks MD) Low back pain Physical Exam Vital Signs: Last Vital Signs Pulse 68 12/09/23 14:08 Resp 16 12/09/23 14:08 BP 132/76 12/09/23 14:09 Pulse Ox 97 12/09/23 14:08 Oxygen Delivery Method Room Air 12/09/23 14:08 BMI result Body Mass Index 28.3 Office Procedures Details: Lumbar Medial Branch Nerve Stimulation Lead Placement, SPR (Sprint) System, left L3 ? After the risks, benefits and alternatives were discussed with the patient and informed consent was obtained, patient was placed in the prone position and padded to foster comfort. The skin overlying the lumbosacral spine was prepped and draped in sterile fashion. Fluoroscopy was used to identify the spinous process and lamina in the center of the patient?s region of pain. After identifying and marking the intended target along the course of the medial branch nerve, the skin around the planned entry point and the subcutaneous tissues were injected with lidocaine 1%. An introducer needle and stimulating probe were assembled, inserted and advanced along the intended course of the medial branch nerve as it traverses the lamina medial and inferior to the zygapophyseal joint, taking care to maintain the proper depth of insertion as the introducer is advanced under fluoroscopic guidance. The introducer needle was delivered to a location in proximity to the nerve. Multiple stimulation parameters were used to deliver stimulation to the target medial branch nerve in concert with stimulating at multiple positions around the nerve. Nerve target acquisition was confirmed noting generation of paresthesias in the paravertebral regions corresponding to the level being stimulated. Various electrical parameter combinations were tested, and the lead location was adjusted (physically relocated) until the patient indicated paresthesia/muscle tension overlapping the distribution of the patient?s typical region of pain. The stimulating probe was removed from the introducer and a percutaneous lead was guided through the needle and delivered to a location in similar proximity to the nerve. Final location was verified with electrical stimulation and documented with fluoroscopy. The introducer needle was removed, and the exposed end of the percutaneous lead was attached to an external stimulator unit. Various electrical parameter combinations were again tested until the patient indicated paresthesia or muscle tension overlapping the distribution of the patient?s typical region of pain. After confirming that lead impedance was in the normal range, the external unit was detached, the needle was removed, and the lead was anchored at the skin. The lead was threaded into the connector block and electrical continuity and desired patient response was confirmed. The connector block was attached to the external stimulator unit. The site was covered with a sterile occlusive dressing. The patient was observed for stability of vital signs and comfort. Sprint PNS Device: Sprint PNS Device [id number] Percutaneous Peripheral Neuroelectrode Procedure: 21883 - Percutaneous Peripheral Neuroelectrode Procedure code (CPT) selection complete Office Meds lidocaine (PF) 50 mg/5 mL (1 %) injection syringe Performing Provider: Fifi Rehman APRN, CNP Performing Location: [facility] Administered by: Melony De La Cruz LPN on 12/09/23 13:39 Dose Route Admin Location Dispensed Lot Number Expiration Date [facility] Senior Human Resources Representative 5 mL subcut 5 mL Assessment & Plan Assessment & Plan (1) Lumbar spondylosis: Code(s): M47.816 - Spondylosis without myelopathy or radiculopathy, lumbar region Category: Medical (2) Intractable back pain: Code(s): M54.9 - Dorsalgia, unspecified Category: Medical Plan Patient is status post left L3 temporary medial branch nerve stimulator placement. Patient tolerated procedure well and was discharged home in stable condition with discharge instructions. All questions were answered. We will follow-up via telephone or in clinic to assess response to therapy. A follow-up appointment was made during today's visit. Orders: Orders AMB Sprint PNS Today M47.816 - Spondylosis without myelopathy or radiculopathy, lumbar region FL guidance in treatment room Today M47.816 - Spondylosis without myelopathy or radiculopathy, lumbar region Coding Level of Care Code Procedure Only Diagnoses Lumbar spondylosis M47.816 Intractable back pain M54.9 CPT Codes Sprint PNS - Sprint PNS Device: Sprint PNS Device ([id number]) Sprint PNS - SPRINT: 72743 - Percutaneous Peripheral Neuroelectrode ([id number]) Implantable Device Implantable Device Implantable Devices [employer] Senior Human Resources Representative Implant Date Expiration Date Analgesic PENS system 1 [employer] 12/09/23 01/22/25
[2023-12-09 14:08] VITALS: BP 124/70; PULSE 68; RESP 16; O2SAT 97; BMI 28.3
[2023-12-09 14:09] VITALS: BP 132/76
== END 2023-12-09 14:00 | disposition home or self-care (01) ==
LOC: HO.PMCPRC 12:59
PROVIDERS: PCP Internal Medicine; Visit Provider Internal Medicine
DX: M47.816 Spondylosis without myelopathy or radiculopathy, lumbar region (principal); M54.9 Dorsalgia, unspecified
CPT/HCPCS: 64555

== ENCOUNTER 2023-12-15 09:30 | Outpatient (AMB) | payer MEDICARE, BC, SELFPAY ==
--- NOTE | 2023-12-15 09:36 | A.OFFVIS_ITS ---
Vital Signs 12/15/23 09:37 Height 5 ft 5 in Weight 174 lb BMI 29.0 BP 150/74 H Blood Pressure Location Lt brachial Position Sitting Respiration 14 Pulse 79 Pulse Source Pulse Oximeter Pulse Oximetry (%) 96 Oxygen Delivery Method Room Air Intake Visit Reasons: s/p L3 Sprint Allergies Sulfa (Sulfonamide Antibiotics) Allergy (Severe, Verified 12/15/23 09:39) serum sickness esomeprazole [From Nexium] Adverse Reaction (Severe, Verified 12/15/23 09:39) Hives citalopram Adverse Reaction (Intermediate, Verified 12/15/23 09:39) Rash Medication List - Last Reconciled 12/15/23 by Melony De La Cruz LPN acetaminophen 1,000 mg PO Q6H PRN amlodipine 10 mg PO DAILY bimatoprost 0.01% (Lumigan) 1 drp ophthalmic (eye) DAILY chlorpheniramine maleate 4 mg PO Q8H PRN diclofenac sodium 1% 2 grams topical QID gabapentin 300 mg PO TID hydrochlorothiazide 25 mg PO DAILY ibuprofen 200 mg PO Q6H PRN lorazepam 1 mg PO DAILY losartan 100 mg PO DAILY potassium chloride ER 10 mEq PO DAILY tramadol 50 mg PO BID PRN HPI HPI s/p L3 Sprint: Details: 78-year-old female who presents to the office for status post left Sprint L3 The patient reports 80% relief following the procedure so far. Past procedures: 12/09/23: Lumbar Medial Branch Nerve Stimulation Lead Placement, SPR (Sprint) System, left L3: 80% initial relief 12/02/23: Lumbar Medial Branch Block, Bilateral L3, L4 medial branches and L5 Dorsal Ramus (2 levels, 3 nerves): 70% relief. 10/14/23: Sacroiliac Joint Injection, Left: 20-30% relief. 10/07/23: Diagnostic Sacroiliac Joint Injection, Left: Positive diagnostic relief. 09/02/23: Transforaminal epidural steroid injection, Left L5: 60-70% relief for two and a half weeks with significant improvement in leg symptoms. [facility] Medical History (Updated 12/09/23 @ 15:58 by Adalid Brooks MD) Low back pain Review of Systems Const All systems reviewed & are unremarkable except as noted in HPI and below Physical Exam Vital Signs: Last Vital Signs Pulse 79 12/15/23 09:37 Resp 14 12/15/23 09:37 BP 150/74 H 12/15/23 09:37 Pulse Ox 96 12/15/23 09:37 Oxygen Delivery Method Room Air 12/15/23 09:37 BMI result Body Mass Index 29.0 General: Appears afebrile. Alert and oriented. Mood and affect appropriate. Follows and participates in conversation appropriately. Respiratory effort is unlabored. Able to transition from sit to stand unassisted. On exam, the insertion site is clean, dry and intact. The dressing was changed to the office today. Results Reviewed Results Reviewed: No imaging reviewed today. Assessment & Plan Assessment & Plan (1) Intractable back pain: Code(s): M54.9 - Dorsalgia, unspecified Category: Medical Plan We are going to be follow up in 7 weeks for lead removal and continue with our stimulation therapy as already doing. I counseled the patient about optimal formulation strategy and answered her questions about that. Scribed for Dr. Brooks by Jessica Barboza, medical record transcriber, on 12/15/2023. I, Dr. Brooks, have personally reviewed and agree with the information entered by the scribe. Coding Level of Care Code Est Pt Level 3 (18671) Diagnoses Intractable back pain M54.9
[2023-12-15 09:37] VITALS: BP 150/74; PULSE 79; RESP 14; O2SAT 96; BMI 29.0
== END 2023-12-15 10:00 | disposition home or self-care (01) ==
PROVIDERS: PCP Internal Medicine; Visit Provider Internal Medicine
DX: M54.9 Dorsalgia, unspecified (principal)
CPT/HCPCS: 99024

== ENCOUNTER → 2023-12-15 09:30 | Outpatient (BNVA) | payer MEDICARE, BC, SELFPAY | PROVIDERS: PCP Internal Medicine; Visit Provider Internal Medicine | DX: M54.50 Low back pain, unspecified (principal) | CPT/HCPCS: 99212 ==

== ENCOUNTER 2024-02-02 10:57 | Outpatient (AMB) | payer MEDICARE, BC, SELFPAY ==
--- NOTE | 2024-02-02 10:58 | A.OFFVIS_ITS ---
Vital Signs 02/02/24 10:59 Height 5 ft 5 in Weight 176 lb BMI 29.3 BP 127/79 Blood Pressure Location Rt brachial Position Sitting Respiration 14 Pulse 86 Pulse Source Pulse Oximeter Pulse Oximetry (%) 96 Oxygen Delivery Method Room Air Intake Visit Reasons: Sprint removal Allergies Sulfa (Sulfonamide Antibiotics) Allergy (Severe, Verified 02/02/24 11:01) serum sickness esomeprazole [From Nexium] Adverse Reaction (Severe, Verified 02/02/24 11:01) Hives citalopram Adverse Reaction (Intermediate, Verified 02/02/24 11:01) Rash Medication List - Last Reconciled 02/02/24 by Melony De La Cruz, MICHELLE acetaminophen 1,000 mg PO Q6H PRN amlodipine 10 mg PO DAILY bimatoprost 0.01% (Lumigan) 1 drp ophthalmic (eye) DAILY chlorpheniramine maleate 4 mg PO Q8H PRN diclofenac sodium 1% 2 grams topical QID gabapentin 300 mg PO TID hydrochlorothiazide 25 mg PO DAILY ibuprofen 200 mg PO Q6H PRN lorazepam 1 mg PO DAILY losartan 100 mg PO DAILY potassium chloride ER 10 mEq PO DAILY tramadol 50 mg PO BID PRN HPI HPI Sprint removal: Details: 78-year-old female who presents to the office for sprint removal. Patient has had good relief for 6-7 weeks following the procedure. She noticed her pain reduced to 70%. However, her pain had recurred 8 days ago with 5/10 in intensity. She notes her pain becomes intolerable at times to the point she is unable to get up/do much. Her pain interferes with her ADLs. She is doing ice compresses frequently everyday. She has been taking ibuprofen, Tylenol, gabapentin, and tramadol for pain relief. Past procedures: 12/09/23: Lumbar Medial Branch Nerve Stimulation Lead Placement, SPR (Sprint) System, left L3: 80% initial relief 12/02/23: Lumbar Medial Branch Block, Bilateral L3, L4 medial branches and L5 Dorsal Ramus (2 levels, 3 nerves): 70% relief. 10/14/23: Sacroiliac Joint Injection, Left: 20-30% relief. 10/07/23: Diagnostic Sacroiliac Joint Injection, Left: Positive diagnostic relief. 09/02/23: Transforaminal epidural steroid injection, Left L5: 60-70% relief for two and a half weeks with significant improvement in leg symptoms. [facility] Medical History (Updated 12/09/23 @ 15:58 by Adalid Brooks MD) Low back pain Physical Exam Vital Signs: Last Vital Signs Pulse 86 02/02/24 10:59 Resp 14 02/02/24 10:59 BP 127/79 02/02/24 10:59 Pulse Ox 96 02/02/24 10:59 Oxygen Delivery Method Room Air 02/02/24 10:59 BMI result Body Mass Index 29.3 General: Appears afebrile. Alert and oriented. Mood and affect appropriate. Follows and participates in conversation appropriately. Respiratory effort is unlabored. Able to transition from sit to stand unassisted. Ambulates with bilaterally normal heel strike and toe off. Lead removed with tip intact. Results Reviewed Results Reviewed: Date: 08/18/23: XR LUMBOSACRAL SPINE FINDINGS: There is bony demineralization. There is marked degenerative disc disease extending from L1-L2 through L5-S1. At L2-L3, there is a 5 mm anterolisthesis. At L3-L4, there is a 6 mm anterolisthesis. At L4-L5, there is an 8 mm anterolisthesis. No acute fracture or spondylolisthesis is seen. There is no significant instability with flexion or extension. The posterior elements are intact. There is multi-level lumbar facet arthropathy. There are aortoiliac atherosclerotic calcifications. There are pelvic surgical clips. A hip arthroplasty is noted. IMPRESSION: There is multi-level marked degenerative disc disease, spondylosis and facet arthropathy, extending from L1-L2 through L5-S1. No acute fracture or spondylolisthesis is seen. There is no instability with flexion or extension. Assessment & Plan Assessment & Plan (1) Intractable back pain: Code(s): M54.9 - Dorsalgia, unspecified Category: Medical (2) Vertebrogenic low back pain: Code(s): M54.51 - Vertebrogenic low back pain Category: Medical (3) Lumbar spondylosis: Code(s): M47.816 - Spondylosis without myelopathy or radiculopathy, lumbar region Category: Medical (4) Spondylolisthesis, lumbar region: Code(s): M43.16 - Spondylolisthesis, lumbar region Category: Medical (5) Lumbar radiculopathy: Code(s): M54.16 - Radiculopathy, lumbar region Category: Medical Plan We we will plan for a repeat bilateral diagnostic lumbar medial branch block L3-L4-L5 in anticipation of lumbar medial branch radiofrequency ablation. She had 70% relief during the diagnostic phase of the 1st injection and she had a good response to PNS therapy. Unfortunately, she has experienced return of symptoms immediately following the lead removal. Discussed the risks and benefits of the procedure with the patient in detail. Al l questions were answered. The patient is on board with the plan. Also discussed potential candidacy for basivertebral nerve ablation in setting of significant endplate Modic changes. She has also a candidate for spinal cord stimulation therapy in setting of intractable low back pain. However these options will only be considered if she does not have a good response to the lumbar medial branch RFA. She is not interested in spine surgical options at this time. Justification for interventional therapy: ? Patient with average pain > 6/10 ? Patient has exhausted conservative therapy ? Previous injection provided >70% relief during the diagnostic phase . Patient has a good understanding of their pain condition and has appropriate mental and social support Scribed for Dr. Brooks by Landon medical csr, on 02/02/2024. I, Dr. Brooks, have personally reviewed and agree with the information entered by the scribe. Coding Level of Care Code Est Pt Level 4 (71828) Diagnoses Intractable back pain M54.9 Vertebrogenic low back pain M54.51 Lumbar spondylosis M47.816 Spondylolisthesis, lumbar region M43.16 Lumbar radiculopathy M54.16
[2024-02-02 10:59] VITALS: BP 127/79; PULSE 86; RESP 14; O2SAT 96; BMI 29.3
== END 2024-02-02 11:39 | disposition home or self-care (01) ==
PROVIDERS: PCP Internal Medicine; Visit Provider Internal Medicine
DX: M54.9 Dorsalgia, unspecified (principal); M54.51 Vertebrogenic low back pain; M47.816 Spondylosis without myelopathy or radiculopathy, lumbar region; M43.16 Spondylolisthesis, lumbar region; M54.16 Radiculopathy, lumbar region
CPT/HCPCS: 99214

== ENCOUNTER → 2024-02-02 10:57 | Outpatient (BNVA) | payer MEDICARE, BC, SELFPAY | PROVIDERS: PCP Internal Medicine; Visit Provider Internal Medicine | DX: M54.51 Vertebrogenic low back pain (principal); M47.26 Other spondylosis with radiculopathy, lumbar region; M43.16 Spondylolisthesis, lumbar region | CPT/HCPCS: 99212 ==

== ENCOUNTER 2024-02-14 11:05 | Outpatient (AMB) | payer MEDICARE, BC, SELFPAY ==
--- NOTE | 2024-02-14 11:06 | A.OFFVIS_ITS ---
Vital Signs 02/14/24 11:08 Height 5 ft 5 in Weight 175 lb BMI 29.1 BP 122/67 Blood Pressure Location Rt brachial Position Sitting Pulse 79 Pulse Source Pulse Oximeter Pulse Oximetry (%) 94 Oxygen Delivery Method Room Air Intake Visit Reasons: discuss scs Allergies Sulfa (Sulfonamide Antibiotics) Allergy (Severe, Verified 02/14/24 11:08) serum sickness esomeprazole [From Nexium] Adverse Reaction (Severe, Verified 02/14/24 11:08) Hives citalopram Adverse Reaction (Intermediate, Verified 02/14/24 11:08) Rash Medication List - Last Reconciled 02/14/24 by Annalise Schultz acetaminophen 1,000 mg PO Q6H PRN amlodipine 10 mg PO DAILY bimatoprost 0.01% (Lumigan) 1 drp ophthalmic (eye) DAILY chlorpheniramine maleate 4 mg PO Q8H PRN diclofenac sodium 1% 2 grams topical QID gabapentin 300 mg PO TID hydrochlorothiazide 25 mg PO DAILY ibuprofen 200 mg PO Q6H PRN lorazepam 1 mg PO DAILY losartan 100 mg PO DAILY potassium chloride ER 10 mEq PO DAILY tramadol 50 mg PO BID PRN HPI HPI discuss scs: Details: 78-year-old female who presents today to the office for a discussion of spinal cord stimulator. She reports lower back pain that radiates down to her left leg. She has burning sensation with pain. She had an MRI scan at [place]. She is not sure if she had DEXA scan in the past. She is interested in proceeding with SCS device. She wants to discuss different options for her pain today. Past procedures: 12/09/23: Lumbar Medial Branch Nerve Stimulation Lead Placement, SPR (Sprint) System, left L3: 80% initial relief 12/02/23: Lumbar Medial Branch Block, Bilateral L3, L4 medial branches and L5 Dorsal Ramus (2 levels, 3 nerves): 70% relief. 10/14/23: Sacroiliac Joint Injection, Left: 20-30% relief. 10/07/23: Diagnostic Sacroiliac Joint Injection, Left: Positive diagnostic relief. 09/02/23: Transforaminal epidural steroid injection, Left L5: 60-70% relief for two and a half weeks with significant improvement in leg symptoms. [facility] Medical History (Updated 12/09/23 @ 15:58 by MIGDALIA Barrientos Low back pain Review of Systems Const All systems reviewed & are unremarkable except as noted in HPI and below Physical Exam Vital Signs: Last Vital Signs Pulse 79 02/14/24 11:08 BP 122/67 02/14/24 11:08 Pulse Ox 94 02/14/24 11:08 Oxygen Delivery Method Room Air 02/14/24 11:08 BMI result Body Mass Index 29.1 General: Appears afebrile. Alert and oriented. Mood and affect appropriate. Follows and participates in conversation appropriately. Respiratory effort is unlabored. Able to transition from sit to stand unassisted. Ambulates with bilaterally normal heel strike and toe off. Column loading reproduces pain in the lower back area. Extension does not reproduce pain. Results Reviewed Results Reviewed: Once again discussed MRI findings with the patient in detail showing multilevel intervertebral disc degeneration, active Modic changes with endplate edema at multiple levels as well as spondylolisthesis in the lumbar spine. Assessment & Plan Assessment & Plan (1) Vertebrogenic low back pain: Code(s): M54.51 - Vertebrogenic low back pain Category: Medical (2) Lumbar radiculopathy: Code(s): M54.16 - Radiculopathy, lumbar region Category: Medical (3) Spondylolisthesis, lumbar region: Code(s): M43.16 - Spondylolisthesis, lumbar region Category: Medical Plan Patient is in agreement with pursuing ablation of the basivertebral nerve as the next step for her vertebrogenic component of the low back pain. We will schedule her for L3-L4-L5-S1 BVN ablation. Discussed the risks and benefits of the procedure with the patient in detail. All questions were answered. The patient is on board with the plan. For the radicular component of her symptoms, we can consider limited foraminotomies/decompressions in the future as opposed to extensive fusions as long as the axial component is sufficiently addressed by the aforementioned intervention. We also discussed spinal cord stimulation as a potential therapy for her multifactorial low back pain. A brochure was provided regarding this to the patient. We will revisit this in case of nonresponse to other interventions. Justification for interventional therapy: ? Patient with average pain > 6/10 ? Patient has exhausted conservative therapy including physical therapy, oral medications, peripheral nerve stimulator device, diagnostic injections, TFESI. She is not interested in pursuing a surgical fusion at this time. ? Patient unable to tolerate physical therapy due to pain. . Patient has a good understanding of their pain condition and has appropriate mental and social support Scribed for Dr. Brooks by Matty Galicia, medical editor, on 02/14/2024. I, Dr. Brooks, have personally reviewed and agree with the information entered by the scribe. Coding Level of Care Code Est Pt Level 4 (54860) Diagnoses Vertebrogenic low back pain M54.51 Lumbar radiculopathy M54.16 Spondylolisthesis, lumbar region M43.16
[2024-02-14 11:08] VITALS: BP 122/67; PULSE 79; O2SAT 94; BMI 29.1
== END 2024-02-14 11:51 | disposition home or self-care (01) ==
PROVIDERS: PCP Internal Medicine; Visit Provider Internal Medicine
DX: M54.51 Vertebrogenic low back pain (principal); M54.16 Radiculopathy, lumbar region; M43.16 Spondylolisthesis, lumbar region
CPT/HCPCS: 99214

== ENCOUNTER → 2024-02-14 11:05 | Outpatient (BNVA) | payer MEDICARE, BC, SELFPAY | PROVIDERS: PCP Internal Medicine; Visit Provider Internal Medicine | DX: M54.51 Vertebrogenic low back pain (principal); M54.16 Radiculopathy, lumbar region; M43.16 Spondylolisthesis, lumbar region | CPT/HCPCS: 99212 ==

== ENCOUNTER 2024-04-26 10:00 | Outpatient (AMB) | payer MEDICARE, BC, SELFPAY ==
--- NOTE | 2024-04-26 09:56 | MHC.OFFVIS ---
Intake Visit Reasons: Discuss Spinal Surgery/Ablations Allergies Sulfa (Sulfonamide Antibiotics) Allergy (Severe, Verified 02/14/24 11:08) serum sickness esomeprazole [From Nexium] Adverse Reaction (Severe, Verified 02/14/24 11:08) Hives citalopram Adverse Reaction (Intermediate, Verified 02/14/24 11:08) Rash HPI HPI Discuss Spinal Surgery/Ablations: Details: 78-year-old female who presents today to the office for a procedure discussion. Patient states she is scheduled for ablation on 05/31/2024 with us. She states she was waiting for Medicaid [place] and she did not hear from us for a long time. She then went to Dr. Saqib Melissa, neurosurgeon, who suggested decompression after reviewing the MRI. She reports her legs have been getting weaker for the last couple of weeks. She states she is losing control over her legs and has issues with motor skills. She reports pain goes down the legs, which is constant throughout the day and feels like her legs give out. She also has been having bladder issue. She is now scheduled for decompression on 18/05/2024, and is scheduled for ablation 2 weeks after the decompression. She is inquiring whether she is still undergoing ablation with us. Past procedures: 12/09/23: Lumbar Medial Branch Nerve Stimulation Lead Placement, SPR (Sprint) System, left L3: 80% initial relief 12/02/23: Lumbar Medial Branch Block, Bilateral L3, L4 medial branches and L5 Dorsal Ramus (2 levels, 3 nerves): 70% relief. 10/14/23: Sacroiliac Joint Injection, Left: 20-30% relief. 10/07/23: Diagnostic Sacroiliac Joint Injection, Left: Positive diagnostic relief. 09/02/23: Transforaminal epidural steroid injection, Left L5: 60-70% relief for two and a half weeks with significant improvement in leg symptoms. [facility] Medical History (Updated 12/09/23 @ 15:58 by Adalid Brooks MD) Low back pain Physical Exam Vital Signs: General: Appears afebrile. Alert and oriented. Mood and affect appropriate. Follows and participates in conversation appropriately. Respiratory effort is unlabored. Able to transition from sit to stand unassisted. Ambulates with bilaterally normal heel strike and toe off. Telehealth Telehealth Telehealth Platform: Telephone Location of provider rendering services: practice address Location of patient: address on file Patient Identification confirmed using: Name, : Yes Telehealth method: voice only Patient verbally consented to treatment: Yes Patient verbally consented to billing insurance company: Yes Patient informed of any privacy concerns related to visit: Yes Results Reviewed Results Reviewed: Date: 08/18/2023 EXAMINATION: XR LUMBOSACRAL SPINE FINDINGS: There is bony demineralization. There is marked degenerative disc disease extending from L1-L2 through L5-S1. At L2-L3, there is a 5 mm anterolisthesis. At L3-L4, there is a 6 mm anterolisthesis. At L4-L5, there is an 8 mm anterolisthesis. No acute fracture or spondylolisthesis is seen. There is no significant instability with flexion or extension. The posterior elements are intact. There is multi-level lumbar facet arthropathy. There are aortoiliac atherosclerotic calcifications. There are pelvic surgical clips. A hip arthroplasty is noted. IMPRESSION: There is multi-level marked degenerative disc disease, spondylosis and facet arthropathy, extending from L1-L2 through L5-S1. No acute fracture or spondylolisthesis is seen. There is no instability with flexion or extension. Assessment & Plan Assessment & Plan (1) Vertebrogenic low back pain: Code(s): M54.51 - Vertebrogenic low back pain Category: Medical (2) Spondylolisthesis, lumbar region: Code(s): M43.16 - Spondylolisthesis, lumbar region Category: Medical (3) Lumbar spinal stenosis: Code(s): M48.061 - Spinal stenosis, lumbar region without neurogenic claudication Category: Medical Plan Patient is having surgery with Dr. Melissa for limited decompression of spinal stenosis. We will cancel our ablation scheduled with us for now. She will follow up in early June and will see how she is feeling at that time and decide next steps accordingly. Scribed for Dr. Brooks by Landon medical administrative assistant, on 04/26/2024. I, Dr. Brooks, have personally reviewed and agree with the information entered by the scribe. Coding Level of Care Code Est Pt Level 3 (68647) Diagnoses Vertebrogenic low back pain M54.51 Spondylolisthesis, lumbar region M43.16 Lumbar spinal stenosis M48.061
== END 2024-04-26 10:01 | disposition home or self-care (01) ==
LOC: HO.PMC 10:00
PROVIDERS: PCP Internal Medicine; Visit Provider Internal Medicine
DX: M54.51 Vertebrogenic low back pain (principal); M43.16 Spondylolisthesis, lumbar region; M48.061 Spinal stenosis, lumbar region without neurogenic claudication
CPT/HCPCS: 99213

== ENCOUNTER → 2024-04-26 10:00 | Outpatient (BNVA) | payer MEDICARE, BC, SELFPAY | PROVIDERS: PCP Internal Medicine; Visit Provider Internal Medicine | DX: M54.51 Vertebrogenic low back pain (principal); M43.16 Spondylolisthesis, lumbar region; M48.061 Spinal stenosis, lumbar region without neurogenic claudication | CPT/HCPCS: 99212 ==

== ENCOUNTER 2024-06-28 09:09 | Outpatient (AMB) | payer MEDICARE, BC, SELFPAY ==
--- NOTE | 2024-06-28 09:29 | A.OFFVIS_ITS ---
Vital Signs 06/28/24 09:30 Height 5 ft 5 in Weight 172 lb BMI 28.6 BP 130/74 Blood Pressure Location Lt brachial Position Sitting Respiration 16 Pulse 87 Pulse Source Pulse Oximeter Pulse Oximetry (%) 96 Oxygen Delivery Method Room Air Intake Visit Reasons: F/U Allergies Sulfa (Sulfonamide Antibiotics) Allergy (Severe, Verified 06/28/24 09:33) serum sickness bacitracin [From Neosporin ([id number])] Adverse Reaction (Severe, Verified 06/28/24 09:33) rash esomeprazole [From Nexium] Adverse Reaction (Severe, Verified 06/28/24 09:33) Hives neomycin [From Neosporin ([id number])] Adverse Reaction (Severe, Verified 06/28/24 09:33) rash polymyxin B [From Neosporin ([id number])] Adverse Reaction (Severe, Verified 06/28/24 09:33) rash citalopram Adverse Reaction (Intermediate, Verified 06/28/24 09:33) Rash Medication List - Last Reconciled 06/28/24 by Melony De La Cruz LPN acetaminophen 1,000 mg PO Q6H PRN amlodipine 10 mg PO DAILY bimatoprost 0.01% (Lumigan) 1 drp ophthalmic (eye) DAILY chlorpheniramine maleate 4 mg PO Q8H PRN diclofenac sodium 1% 2 grams topical QID gabapentin 300 mg PO TID hydrochlorothiazide 25 mg PO DAILY ibuprofen 200 mg PO Q6H PRN lorazepam 1 mg PO DAILY losartan 100 mg PO DAILY potassium chloride ER 10 mEq PO DAILY tramadol 50 mg PO BID PRN HPI HPI F/U: Details: 78-year-old female who presents to the office today for a follow-up. She underwent limited decompression of spinal stenosis with Dr. Melissa on 05/18/24. She reports no relief following the surgery; however, she had 3 hours of sleep for 2 weeks without pain. She reports she has back pain associated with burning sensation in the back which radiates down to the left buttock and thigh. She recalls she was leaning on the shopping cart while standing at the counter, and her back pain had worsened to the point she was hyperventilating and had to sit down immediately. She has been doing ice compresses for pain relief. She states she is not happy with the surgery and she does not wish to undergo another surgery. She is interested in further management. She has a 6-week follow-up visit with her provider next week. Past procedures: 12/09/23: Lumbar Medial Branch Nerve Stimulation Lead Placement, SPR (Sprint) System, left L3: 80% initial relief 12/02/23: Lumbar Medial Branch Block, Bilateral L3, L4 medial branches and L5 Dorsal Ramus (2 levels, 3 nerves): 70% relief. 10/14/23: Sacroiliac Joint Injection, Left: 20-30% relief. 10/07/23: Diagnostic Sacroiliac Joint Injection, Left: Positive diagnostic relief. 09/02/23: Transforaminal epidural steroid injection, Left L5: 60-70% relief for two and a half weeks with significant improvement in leg symptoms. [facility] Medical History (Updated 06/28/24 @ 12:30 by Adalid Brooks MD) Low back pain Review of Systems Const All systems reviewed & are unremarkable except as noted in HPI and below Physical Exam Vital Signs: Last Vital Signs Pulse 87 06/28/24 09:30 Resp 16 06/28/24 09:30 BP 130/74 06/28/24 09:30 Pulse Ox 96 06/28/24 09:30 Oxygen Delivery Method Room Air 06/28/24 09:30 BMI result Body Mass Index 28.6 General: Appears afebrile. Alert and oriented. Mood and affect appropriate. Follows and participates in conversation appropriately. Respiratory effort is unlabored. Able to transition from sit to stand unassisted. Ambulates with bilaterally normal heel strike and toe off. Results Reviewed Results Reviewed: 08/18/2023: XR LUMBOSACRAL SPINE FINDINGS: There is bony demineralization. There is marked degenerative disc disease extending from L1-L2 through L5-S1. At L2-L3, there is a 5 mm anterolisthesis. At L3-L4, there is a 6 mm anterolisthesis. At L4-L5, there is an 8 mm anterolisthesis. No acute fracture or spondylolisthesis is seen. There is no significant instability with flexion or extension. The posterior elements are intact. There is multi-level lumbar facet arthropathy. There are aortoiliac atherosclerotic calcifications. There are pelvic surgical clips. A hip arthroplasty is noted. IMPRESSION: There is multi-level marked degenerative disc disease, spondylosis and facet arthropathy, extending from L1-L2 through L5-S1. No acute fracture or spondylolisthesis is seen. There is no instability with flexion or extension. Assessment & Plan Assessment & Plan (1) Lumbar radiculopathy: Code(s): M54.16 - Radiculopathy, lumbar region Category: Medical (2) Post laminectomy syndrome: Code(s): M96.1 - Postlaminectomy syndrome, not elsewhere classified Category: Medical Plan Patient is status post a limited decompression of the lumbar spine. Unfortunately, this did not help her symptoms. She continues to have significant axial low back pain as well as radiation into the left lower extremity with significant burning and tearing pain in her left buttock and thigh. I had previously discussed basivertebral nerve ablation with her as a potential treatment option for her axial low back pain. But given her radicular symptoms in the left thigh at this time, I think it would be beneficial to proceed with spinal cord stimulation trial instead. I went over the details, including risks and benefits and the nature of the procedures for trial and implant with her. She is interested in proceeding forward. Place a referral for psychological clearance. Once we approve psychology clearance, we will request authorization for our spinal cord stimulation trial with a [employer] device and follow up with an implant, if the trial is successful. Justification for interventional therapy: ? Patient with average pain > 6/10 ? Patient has exhausted conservative and surgical interventions . Patient has a good understanding of their pain condition and has appropriate mental and social support Scribed for Dr. Brooks by Landon medical transcription supervisor, on 06/28/2024. I, Dr. Brooks, have personally reviewed and agree with the information entered by the scribe. Coding Level of Care Code Est Pt Level 4 (32105) Diagnoses Lumbar radiculopathy M54.16 Post laminectomy syndrome M96.1
[2024-06-28 09:30] VITALS: BP 130/74; PULSE 87; RESP 16; O2SAT 96; BMI 28.6
== END 2024-06-28 10:04 | disposition home or self-care (01) ==
PROVIDERS: PCP Internal Medicine; Visit Provider Internal Medicine
DX: M54.16 Radiculopathy, lumbar region (principal); M96.1 Postlaminectomy syndrome, not elsewhere classified
CPT/HCPCS: 99214

== ENCOUNTER → 2024-06-28 09:09 | Outpatient (BNVA) | payer MEDICARE, BC, SELFPAY | PROVIDERS: PCP Internal Medicine; Visit Provider Internal Medicine | DX: M54.16 Radiculopathy, lumbar region (principal); M96.1 Postlaminectomy syndrome, not elsewhere classified | CPT/HCPCS: 99212 ==